=== PATIENT | male | born 1965 | race African-American/Black ===

== ENCOUNTER 2018-10-25 15:25 | Emergency (ER) | payer MEDICARE ==
[~2018-10-25] VITALS: Ht 182.9 cm; Wt 81.7 kg
[2018-10-25] MEDS ORDERED: MONDOXYNE NL100 MG PO (16:37)
[2018-10-25] MEDS ORDERED: CEPH500 PO (16:37)
== END 2018-10-25 16:56 | disposition home or self-care (01) ==
LOC: ER 15:25
DX: L03.031 Cellulitis of right toe (principal); Z91.013 Allergy to seafood; Z87.891 Personal history of nicotine dependence
CPT/HCPCS: 99283

== ENCOUNTER 2019-01-04 15:32 | Emergency (ER) | payer MEDICARE ==
[~2019-01-04] VITALS: Ht 182.9 cm; Wt 81.7 kg
[~2019-01-04 15:32] MED LIST: CEPH500 PO; MONDOXYNE NL100 MG PO
[2019-01-04 17:07] LABS: BASOPHILS ABSOLUTE AUTO 0.03 K/mm3 (0.00-0.23); BASOPHILS PERCENT AUTO 1 % (0-2); EOSINOPHILS ABSOLUTE AUTO 0.18 K/mm3 (0.00-0.68); EOSINOPHILS PERCENT AUTO 3 % (0-6); Hematocrit 36.9 % (37.0-53.0); Hemoglobin 12.2 g/dL (13.5-17.5); IMMATURE GRAN ABSOLUTE AUTO 0.02 K/mm3 (0.00-0.10); IMMATURE GRAN PERCENT AUTO 0 % (0-1); LYMPHOCYTES PERCENT AUTO 35 % (21-46); MONOCYTES ABSOLUTE AUTO 0.46 K/mm3 (0.16-1.47); MONOCYTES PERCENT AUTO 9 % (4-13); Mean Corpuscular HGB 29.1 pg (26.0-34.0); Mean Corpuscular HGB Conc 33.1 g/dL (31.5-36.5); Mean Corpuscular Volume 88 fL (80-100); Mean Platelet Volume 8.7 fL (9.1-12.4); NEUTROPHILS ABSOLUTE AUTO 2.77 K/mm3 (1.96-9.15); NEUTROPHILS PERCENT AUTO 52 % (41-73); Platelet Count 206 K/mm3 (150-400); RDW Coefficient Variation 13.9 % (11.7-14.2); RDW Standard Deviation 44.5 fL (35.1-46.3); Red Blood Cell Count 4.19 M/mm3 (4.30-5.90); White Blood Cell Count 5.36 K/mm3 (4.00-11.30)
[2019-01-04 17:29] LABS: Alanine Aminotransfer (ALT/SGP 37 U/L (12-78); Albumin, Blood 3.6 g/dL (3.4-5.0); Albumin/Globulin Ratio 1.1 (0.8-1.8); Alk Phos 73 U/L (50-136); Anion Gap 7 mmol/L (6-16); Aspartate Aminotrans (AST/SGOT 40 U/L (12-37); Bilirubin, Total 0.6 mg/dL (0.1-1.0); Blood Urea Nitrogen 19 mg/dL (8-24); Bun/Creatinine Ratio 17.6 (12.0-20.0); CO2, Blood 28 mmol/L (21-32); Chloride, Blood 105 mmol/L (98-108); Creatinine, Blood 1.08 mg/dL (0.60-1.20); Globulin, Blood 3.4 g/dL (2.2-4.0); Glomerular Filtration Rate >60 (60-); Glucose, Blood 108 mg/dL (70-99); Potassium, Blood 3.6 mmol/L (3.5-5.5); Sodium, Blood 140 mmol/L (136-145)
[2019-01-04] MEDS ORDERED: Bactrim Ds Tab1 EACH PO (19:56)
[2019-01-04] MEDS ORDERED: CEPH500 PO (19:56)
== END 2019-01-04 20:10 | disposition home or self-care (01) ==
LOC: ER 15:32
PROVIDERS: Physician Assistant
DX: J34.0 Abscess, furuncle and carbuncle of nose (principal); L03.112 Cellulitis of left axilla; Z91.013 Allergy to seafood; Z87.891 Personal history of nicotine dependence; Z21 Asymptomatic human immunodeficiency virus [HIV] infection status
CPT/HCPCS: 36415; 70470; 70487; 80053; 83605; 85025; 99284-25; Q9967

== ENCOUNTER → 2021-02-04 | Outpatient (CLI) | payer MEDICARE ==
[~2021-02-04] MED LIST changes: +Bactrim Ds Tab1 EACH PO
[2021-02-04 18:54] LABS: BASOPHILS ABSOLUTE AUTO 0.06 K/mm3 (0.00-0.23); BASOPHILS PERCENT AUTO 1 % (0-2); EOSINOPHILS ABSOLUTE AUTO 0.27 K/mm3 (0.00-0.68); EOSINOPHILS PERCENT AUTO 3 % (0-6); Hematocrit 40.8 % (37.0-53.0); Hemoglobin 14.3 g/dL (13.5-17.5); IMMATURE GRAN ABSOLUTE AUTO 0.01 K/mm3 (0.00-0.10); IMMATURE GRAN PERCENT AUTO 0 % (0-1); LYMPHOCYTES ABSOLUTE AUTO 3.37 K/mm3 (0.84-5.20); LYMPHOCYTES PERCENT AUTO 41 % (21-46); MONOCYTES ABSOLUTE AUTO 0.58 K/mm3 (0.16-1.47); MONOCYTES PERCENT AUTO 7 % (4-13); Mean Corpuscular HGB 30.6 pg (26.0-34.0); Mean Corpuscular Volume 87 fL (80-100); Mean Platelet Volume 9.1 fL (9.1-12.4); NEUTROPHILS ABSOLUTE AUTO 3.93 K/mm3 (1.96-9.15); NEUTROPHILS PERCENT AUTO 48 % (41-73); Platelet Count 256 K/mm3 (150-400); RDW Coefficient Variation 12.9 % (11.7-14.2); RDW Standard Deviation 40.8 fL (35.1-46.3); Red Blood Cell Count 4.68 M/mm3 (4.30-5.90); White Blood Cell Count 8.22 K/mm3 (4.00-11.30)
[2021-02-04 19:16] LABS: Alanine Aminotransfer (ALT/SGP 29 U/L (12-78); Albumin/Globulin Ratio 1.3 (0.8-1.8); Alk Phos 70 U/L (50-136); Anion Gap 5 mmol/L (6-16); Aspartate Aminotrans (AST/SGOT 19 U/L (12-37); Bilirubin, Total 0.2 mg/dL (0.1-1.0); Blood Urea Nitrogen 11 mg/dL (8-24); Bun/Creatinine Ratio 9.2 (12.0-20.0); CO2, Blood 25 mmol/L (21-32); Calcium, Blood 9.1 mg/dL (8.5-10.1); Chloride, Blood 111 mmol/L (98-108); Globulin, Blood 3.1 g/dL (2.2-4.0); Glomerular Filtration Rate >60 (60-); Glucose, Blood 111 mg/dL (70-99); Potassium, Blood 3.9 mmol/L (3.5-5.5); Sodium, Blood 141 mmol/L (136-145); Total Protein, Blood 7.1 g/dL (6.4-8.2)
[2021-02-05 10:11] LABS: HCV ANTIBODY 0.2 (0.0-0.9)
[2021-02-05 10:11] LABS: HBSAG SCREEN Positive (Negative); HEP B SURFACE AB Non Reactive (.)
[2021-02-05 15:11] LABS: % CD 4 POS. LYMPH. 5.8 % (30.8-58.5); ABSOLUTE CD 4 HELPER 186 /uL (359-1519); BASOS 1 % (Not Estab.); EOS 3 % (Not Estab.); EOS (ABSOLUTE) 0.2 x10E3/uL (0.0-0.4); HEMATOCRIT 41.5 % (37.5-51.0); HEMOGLOBIN 14.3 g/dL (13.0-17.7); IMMATURE GRANULOCYTES 0 % (Not Estab.); LYMPHS 42 % (Not Estab.); LYMPHS (ABSOLUTE) 3.2 x10E3/uL (0.7-3.1); MCH 31.4 pg (26.6-33.0); MCHC 34.5 g/dL (31.5-35.7); MCV 91 fL (79-97); MONOCYTES 7 % (Not Estab.); MONOCYTES(ABSOLUTE) 0.6 x10E3/uL (0.1-0.9); NEUTROPHILS 47 % (Not Estab.); NEUTROPHILS (ABSOLUTE) 3.6 x10E3/uL (1.4-7.0); PLATELETS 223 x10E3/uL (150-450); RBC 4.56 x10E6/uL (4.14-5.80); WBC 7.7 x10E3/uL (3.4-10.8)
[2021-02-06 17:10] LABS: HIV-1 RNA BY PCR <20 (.)
[2021-02-06 17:10] LABS: HBV IU/ML HBV DNA not detected IU/mL (.)
== END | disposition home or self-care (01) ==
LOC: LAB SHORT 17:48 → LAB 17:48
PROVIDERS: Internal Medicine Infectious Disease
DX: B20 Human immunodeficiency virus [HIV] disease (principal); B18.1 Chronic viral hepatitis B without delta-agent
CPT/HCPCS: 80053; 85025; 86361; 86592; 86707; 86708; 86803; 87340; 87350; 87517; 87536

== ENCOUNTER → 2021-06-25 | Outpatient (CLI) | payer MEDICARE | END | disposition home or self-care (01) | LOC: LAB 13:07 → LAB SHORT 13:07 | DX: K21.9 Gastro-esophageal reflux disease without esophagitis (principal) | CPT/HCPCS: 87338 ==

== ENCOUNTER 2022-03-02 08:08 | Day surgery (SDC) | payer MEDICARE, OTHER ==
[~2022-03-02] VITALS: Ht 182 cm; Wt 84.6 kg
[~2022-03-02 08:08] MED LIST changes: +ACYC400 PO; +BIKTARVY 50-201 EAC1 PO; +FAMO20 PO; +TAMS.4ER PO
--- NOTE | 2022-03-02 08:55 | NUR ---
Ambulatory in Day Surgery History, Chart, Medications and Allergies reviewed before start of procedure.Patient confirms NPO status and agrees with scheduled surgery. Patient states colon prep results clear.
--- NOTE | 2022-03-02 10:46 | NUR ---
03/02/22 1046 Tony Rosa HISTORY, CHART, MEDICATIONS AND ALLERGIES REVIEWED BEFORE START OF PROCEDURE. PATIENT CONFIRMS NPO STATUS AND AGREES WITH SCHEDULED PROCEDURE. 3-LEAD EKG REVIEWED WITH PHYSICIAN PRIOR TO START OF PROCEDURE. MONITOR INTACT WITH CONTINUOUS PULSE OXIMETRY,CAPNOGRAPHY, 3-LEAD EKG, INTERMITTENT BP. SUPPLEMENTAL O2 TO BE TITRATED THROUGHOUT PROCEDURE TO MAINTAIN O2 SATURATION ABOVE 90%. PATIENT DETERMINED TO BE ASA APPROPRIATE FOR PROPOFOL SEDATION PRIOR TO START OF PROCEDURE BY DR. ROBINS.
--- NOTE | 2022-03-02 11:29 | NUR ---
Patient up to Ambulate independently. Gait steady. Discharge instructions reviewed with patient. Patient verbalizes understanding. Copy given to patient to take home. Discharged via wheelchair to private car for ride home WITH NEIGHBOR
== END 2022-03-02 11:30 | disposition home or self-care (01) ==
LOC: ORSCMMR 08:08 → ORD 09:00 → ORSCMMR 09:00
PROVIDERS: Internal Medicine Gastroenterology
PROC: 0DBN8ZX Excision of Sigmoid Colon, Via Natural or Artificial Opening Endoscopic, Diagnostic (ICD-10-PCS; principal; 2022-03-02 09:00)
DX: R19.5 Other fecal abnormalities (principal); D12.5 Benign neoplasm of sigmoid colon; B20 Human immunodeficiency virus [HIV] disease; Z85.46 Personal history of malignant neoplasm of prostate; N40.0 Benign prostatic hyperplasia without lower urinary tract symptoms; Z79.899 Other long term (current) drug therapy
CPT/HCPCS: 88305; J2250; J2704; J7120

== ENCOUNTER → 2023-11-18 | Outpatient (CLI) | payer MEDICARE ==
[2023-11-18 18:48] LABS: BASOPHILS ABSOLUTE AUTO 0.03 K/mm3 (0.00-0.23); BASOPHILS PERCENT AUTO 1 % (0-2); EOSINOPHILS ABSOLUTE AUTO 0.11 K/mm3 (0.00-0.68); EOSINOPHILS PERCENT AUTO 2 % (0-6); Hematocrit 42.1 % (37.0-53.0); Hemoglobin 14.8 g/dL (13.5-17.5); IMMATURE GRAN ABSOLUTE AUTO 0.02 K/mm3 (0.00-0.10); IMMATURE GRAN PERCENT AUTO 0 % (0-1); LYMPHOCYTES ABSOLUTE AUTO 1.83 K/mm3 (0.84-5.20); LYMPHOCYTES PERCENT AUTO 28 % (21-46); MONOCYTES ABSOLUTE AUTO 0.64 K/mm3 (0.16-1.47); MONOCYTES PERCENT AUTO 10 % (4-13); Mean Corpuscular HGB 30.3 pg (26.0-34.0); Mean Corpuscular HGB Conc 35.2 g/dL (31.5-36.5); Mean Corpuscular Volume 86 fL (80-100); Mean Platelet Volume 8.6 fL (9.1-12.4); NEUTROPHILS ABSOLUTE AUTO 3.84 K/mm3 (1.96-9.15); NEUTROPHILS PERCENT AUTO 59 % (41-73); Platelet Count 234 K/mm3 (150-400); RDW Coefficient Variation 13.1 % (11.7-14.2); RDW Standard Deviation 41.1 fL (35.1-46.3); Red Blood Cell Count 4.89 M/mm3 (4.30-5.90); White Blood Cell Count 6.47 K/mm3 (4.00-11.30)
== END | disposition home or self-care (01) ==
LOC: LAB SHORT 18:25 → LAB 18:25
PROVIDERS: Student in an Organized Health Care Education/Training Program
DX: K92.1 Melena (principal)
CPT/HCPCS: 82728; 83540; 83550; 85025

== ENCOUNTER → 2024-10-23 | Outpatient (CLI) | payer MEDICARE ==
[2024-10-24 13:10] LABS: Protein, Urine Quantitative 13.2 mg/dL (0.0-11.9)
[2024-10-24 13:13] LABS: Microalbumin, Urine Quant. 19.7 mg/L (0.000-20.000)
== END | disposition home or self-care (01) ==
LOC: LAB SHORT 11:00 → LAB 11:00 → LAB SHORT 10-24 11:22 → EDSTATUS 10-20 14:35 → LAB FUT 10-20 14:35
PROVIDERS: Internal Medicine Nephrology
DX: N18.2 Chronic kidney disease, stage 2 (mild) (principal); D63.1 Anemia in chronic kidney disease; N25.81 Secondary hyperparathyroidism of renal origin; E55.9 Vitamin D deficiency, unspecified; E78.00 Pure hypercholesterolemia, unspecified; E29.1 Testicular hypofunction; R76.9 Abnormal immunological finding in serum, unspecified; R94.5 Abnormal results of liver function studies; R94.6 Abnormal results of thyroid function studies
CPT/HCPCS: 81050; 82043; 82570; 84156